=== PATIENT | male | born 1970 | race Caucasian/White ===

== ENCOUNTER 2017-01-15 13:23 | Emergency (ER) | payer OTHER ==
[~2017-01-15] VITALS: Ht 177.8 cm; Wt 83.0 kg
[~2017-01-15 13:23] MED LIST: ADVAIR HFA120 INHALA IH; CEFPODOXIME PR200 MG PO; EXCEDRIN EXTRA1 EACH PO; LEVAQUIN500 MG PO; MUCINEX600 MG PO; NICOTINE PATCH1 EAC2 TD; PREDNISONE20 MG PO; PROAIR HFA8.5 GM IH; SPIRIVA RESPIMAT4 GM IH; TYLENOL REGULA325 MG PO; VENTOLIN HFA18 GM IH
[2017-01-15] MEDS ORDERED: PREDNISONE20 MG PO (16:32)
[2017-01-15 16:43] VITALS: BP 149/77
== END 2017-01-15 16:46 | disposition home or self-care (01) ==
LOC: EME 13:23
DX: J40 Bronchitis, not specified as acute or chronic (principal); J45.909 Unspecified asthma, uncomplicated; Z72.0 Tobacco use
CPT/HCPCS: 71020; 94640; 99281; 99283; J7512